=== PATIENT | male | born 1970 | race Caucasian/White ===

== ENCOUNTER 2024-08-15 08:34 | Outpatient (AMB) | payer BC, SELFPAY ==
--- NOTE | 2024-08-15 08:42 | MHC.OFFVIS ---
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 The patient states that he may have dislocated his right shoulder in 1996 while rock climbing. Over the last year his pain and stiffness have gotten worse. He continues to be as active as possible. He reports difficulty with lifting his right hand above shoulder height. He has had cortisone injections in the past which gave him temporary relief. 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 Physical Exam Vital Signs: BMI result Body Mass Index 24.4 Const Other: Well-nourished well-developed very friendly male awake alert and oriented x3 in no acute distress Extrem Other: Bilateral upper extremity examination shows good capillary refill, no skin lesions noted, normal sensation light touch Right shoulder examination shows decreased active and passive range of motion when compared to his left shoulder, 4+ out of 5 strength with supraspinatus testing, positive impingement signs, no instability Results Reviewed Results Reviewed: X-rays of the patient's right shoulder show moderate glenohumeral joint degenerative changes, a type 2 acromion, severe acromioclavicular joint narrowing MRI of the patient's right shoulder shows moderate glenohumeral joint degenerative changes, a type 2 acromion, signal change within the supraspinatus tendon most likely due to adhesive capsulitis Assessment & Plan Assessment & Plan (1) Impingement of right shoulder: Code(s): M25.811 - Other specified joint disorders, right shoulder Category: Medical Plan Mr. Nava presents with right shoulder pain and stiffness due to impingement syndrome, acromioclavicular joint arthritis, adhesive capsulitis and glenohumeral joint arthritis. I had a lengthy discussion with the patient regarding the treatment options. At this point the patient has failed continued non operative treatments. The risks and benefits of right shoulder arthroscopic surgery were discussed at length with the patient. The patient wishes to proceed with surgery. Surgery will most likely involve right shoulder diagnostic arthroscopy with distal clavicle excision, acromioplasty, capsular release and manipulation under anesthesia. The patient does understand that he may not get 100% relief of his symptoms depending on the severity of his glenohumeral joint degenerative changes. He wishes to hold off on total shoulder replacement surgery for as long as possible. I agree with this plan. Feel free to call me at any time should questions regarding his orthopedic management arise. I spent 20 minutes in reviewing the patient's records and imaging studies, seeing the patient and documenting in the medical record. Orders: Orders XR shoulder RT min 2V Today M25.511 - Pain in right shoulder Coding Level of Care Code New Pt Level 3 (64720) Complex EM visit Add On G2211 Diagnoses Impingement of right shoulder M25.811
[2024-08-15 08:44] VITALS: BMI 24.4
--- OUTSIDE RECORDS SUMMARY | 2024-08-15 09:11 | XMS_ITS | Clinical Summary ---
Author Organization [facility] Address [address] [place] [address] Care Team Providers Care Dental Service Chief Name Role Phone Elvia Billings PA-C Primary Care Provider [phone] Medications Medication Sig Dispensed Refills Start Date End Date Status terbinafine (LamiSIL) 250 MG tablet Take 250 mg by mouth. 0 04/25/2019 Active terbinafine (LamiSIL) 250 MG tablet TK 1 T PO D 0 04/25/2019 Active Social History Tobacco Use Types Packs/Day Years Used Date Smoking Tobacco: Never Smokeless Tobacco: Never Alcohol Use Standard Drinks/Week Comments No 0 (1 standard drink = 0.6 oz pur e alcohol) Sex and Gender Information Value Date Recorded Sex Assigned at Not on file Gender Identity Not on file Sexual Orientation Not on file Job Start Date Occupation Industry Not on file Not on file Not on file Last Filed Vital Signs Vital Sign Reading Time Taken Comments Blood Pressure - - Pulse - - Temperature - - Respiratory Rate - - Oxygen Saturation - - Inhaled Oxygen Concentration - - Weight 78.5 kg (173 lb) 06/24/2019 9:43 AM EST Height 180.3 cm (5' 11 ) 06/24/2019 9:43 AM EST Body Mass Index 24.13 06/24/2019 9:43 AM EST Plan of Treatment Health Maintenance Due Date Last Done Comments Hepatitis B Vaccines (1 of 3 - 3-dose series) 1969 Hepatitis C Screening 1969 Depression Screening 1981 Preventative Health Evaluation 11/21/1987 Colon Cancer Screening (Colonoscopy) 2014 COVID-19 Vaccine (3 - 2023-2 5 season) 2024 10/11/2020, 09/20/2020 Influenza Vaccine (#1) 2024 Shingrix-Zoster Vaccine (2 o f 2) 04/19/2024 02/23/2024 DTap / Tdap / Td (3 - Td or Tdap) 03/01/2034 03/01/2024, 09/03/2013 Pneumococcal Vaccine Aged Out No long er eligible based on patient's age to complete this topic RSV Ped < 20 months Aged Out No longe r eligible based on patient's age to complete this topic Care Teams Dental Service Chief Relationship Specialty Start Date End Date Elvia Billings PA-C [address] [place] [phone] PCP - General Physician Adolescent Specialist 06/10/19
--- OUTSIDE RECORDS SUMMARY | 2024-08-15 09:11 | XMS_ITS | Encounter Summary ---
Author Organization [facility] Address [address] [place] [address] Care Team Providers Care Sql Report Analyst Name Role Phone Elvia Billings Primary Care Provider [phone] Encounter Details Date Type Department Care Team [...] Care Team (Late st Contact Info) Description 03/07/2025 11:30 AM EDT Office Visit [facility] [address] [place] [phone] Ethan Vides MD [address] [place] [address] documented as of this encounter Procedures Procedure [...] chronic pain, chronic increasing right shoulder pain. ??History of biceps rupture and dislocation TECHNIQUE: Multiplanar sequences were acquired through the joint following the arthrographic infusion of contrast diluted in normal saline. CONTRAST: 0.1 mL of Clariscan intra-articular, diluted in normal saline. COMPARISON: Same day arthrogram image. FINDINGS: Articular cartilage and bone marrow signal: Severe loss of articular cartilage lining the glenohumeral joint space. ??There is a large ossified loose body in the subcoracoid recess measuring 2.8 x 1.7 cm. ??There may also be a 2nd small loose body in the biceps tendon sheath. ??Marginal osteophytes arise from the inferior margin of the glenohumeral joint. ??The bone marrow signal is within normal limits. Labrum: Posterior extension of the superior sublabral recess, concerning for a SLAP tear. ??There is a well-defined tear through the posterior labrum with contrast extending through this defect and coalescing into a small cyst. Capsule and glenohumeral ligaments: Anterior capacious capsule. ??The glenohumeral ligaments are intact. Rotator cuff: Degeneration of the supraspinatus tendon insertion. ??There is imbibed contrast material insinuated within its articular fibers, consistent with numerous small partial thickness rotator cuff tears. Insertional infraspinatus tendinopathy without tear. ??The subscapularis and teres minor are preserved. Biceps tendon: The biceps tendon is not ruptured or dislocated. AC joint: Mild arthritis. Acromial morphology: Type II morphology without impingement. Bursal spaces: No bursitis. ??There is contrast extravasation in the anterior deltoid related to the arthrographic approach. Miscellaneous: None. CONCLUSION: 1. ??Severe glenohumeral joint space osteoarthritis. ??Loose bodies. 2. ??Tears of the posterior and superior aspects of the glenoid labrum. 3. ??Severe insertional supraspinatus tendinosis with numerous small articular surface partial tears. 4. ??Mild AC joint space arthrosis. Report reviewed and [...] pain documented in this encounter Care Teams Sql Report Analyst Relationship Specialty Start Date End Date Elvia Billings PA [address] [place] [address] PCP - General 03/19/24 07/04/24 documented as of this encounter
--- OUTSIDE RECORDS SUMMARY | 2024-08-15 09:11 | XMS_ITS | Encounter Summary ---
Author Organization [facility] Address [address] [place] [address] Care Team Providers Care Military Police Officer Name Role Phone Elvia Billings Primary Care Provider [phone] Encounter Details Date Type Department Care Team (Latest Contact Info) Description 03/26/2024 8:31 AM EDT Hospital Encounter TH HISTORIC ENCOUNTERS [...] Office Visit Internal Medicine - [facility] [address] [place] [address] Ethan Vides MD [address] [place] [address] documented as of this encounter Procedures Procedure Name Priority Date/Time Associated Diagnosis Comments FL ARTHROGRAM SHOULDER - RIGHT Routine 03/26/2024 9:12 AM EDT Pain in right shoulder Other chronic pain documented in this encounter Results * FL ARTHROGRAM SHOULDER - RIGHT (03/26/2024 9:12 AM EDT) Anatomical Region Laterality Modality Radio Fluoroscop y 02/27/2024 12:4 2 PM EDT Narrative 03/26/2024 12:56 PM EDT Indication: Joint pain with concern for labral injury. Interventionalists: Stephon Kirk MD Laterality: Right Procedure: The patient was given an opportunity to ask any all questions that they had regarding the procedure. These questions were answered. Informed consent was provided by the patient after usual and customary explanation of the procedure and expected and possible side effects/complications. ??A timeout was performed as per [facility] policy. The patient was placed in a supine position with their shoulder externally rotated and adducted. This joint was identified via fluoroscopy. The overlying skin was prepped and draped in the usual sterile fashion. Approximately 3 ml of 1% lidocaine was instilled into subcutaneous and deeper soft tissues. Subsequently, a 22- gauge spinal needle was placed under fluoroscopic guidance into the joint capsule. Confirmation of intra-articular placement of the needle was determined via administration of 2 mL Isovue-300. A dilute mixture of gadolinium based contrast was administered. 0.6 mL in 20 mL of 0.9% sterile saline was provided. ?? The patient tolerated the procedure well. No bleeding or hematoma developed. The patient remained neurovascularly intact. A Band-Aid was placed. The patient was assisted off the table and was able to ambulate stably. Fluoroscopic Time: 0.1 minutes. Impression: Arthrogram in anticipation of MRI. Report reviewed and signed by : Dr. Stephon Kirk MD on 03/26/2024 12:56 PM. Workstation Name - [id number] Procedure Note Stephon Kirk MD - 04/01/2024 Indication: Joint pain with concern for labral injury. Interventionalists: Stephon Kirk MD Laterality: Right Procedure: The patient was given an opportunity to ask any all questionsthat they had regarding the procedure. These questions were answered.Informed consent was provided by the patient after usual and customaryexplanation of the procedure and expected and possible sideeffects/complications. A timeout was performed as per [facility]. The patient was placed in a supine position with their shoulder externallyrotated and adducted. This joint was identified via fluoroscopy. Theoverlying skin was prepped and draped in the usual sterile fashion.Approximately 3 ml of 1% lidocaine was instilled into subcutaneous anddeeper soft tissues. Subsequently, a 22-gauge spinal needle was placedunder fluoroscopic guidance into the joint capsule. Confirmation ofintra-articular placement of the needle was determined via administrationof 2 mL Isovue-300. A dilute mixture of gadolinium based contrast wasadministered. 0.6 mL in 20 mL of 0.9% sterile saline was provided. The patient tolerated the procedure well. No bleeding or hematomadeveloped. The patient remained neurovascularly intact. A Band-Aid wasplaced. The patient was assisted off the table and was able to ambulatestably. Fluoroscopic Time: 0.1 minutes. Impression: Arthrogram in anticipation of MRI. Report reviewed and signed by : Dr. Stephon Kirk MD on 03/26/2024 12:56 PM.Workstation Name - [id number] 0.1 Jeremy Hyde MD IMG FLUOROSCOPY PROCEDURES Fi nal Result documented in this encounter Visit Diagnoses Diagnosis Pain in right shoulder Other chronic pain documented in this encounter Care Teams Military Police Officer Relationship Specialty Start Date End Date Elvia Billings PA [address] [place] [address] PCP - General 03/19/24 07/04/24 documented as of this encounter
--- OUTSIDE RECORDS SUMMARY | 2024-08-15 09:11 | XMS_ITS | Clinical Summary ---
Author Organization [facility] Address [address] [place] [address] Care Team Providers Care Neuropsychology Division Chief Name Role Phone Pcp, No Primary Care Provider Unavailabl e Allergies No known active allergies Medications No known medications Active Problems No known active problems Social History Tobacco Use Types Packs/Day Years Used Date Smoking Tobacco: Never Smokeless Tobacco: Never Alcohol Use Standard Drinks/Week Comments Not Currently 0 (1 standard drink = 0.6 oz pur e alcohol) Sex and Gender Information Value Date Recorded Sex Assigned at Not on file Gender Identity Not on file Sexual Orientation Not on file Last Filed Vital Signs Vital Sign Reading Time Taken Comments Blood Pressure 145/90 08/08/2023 8:46 AM EST Pulse 60 08/08/2023 8:46 AM EST Temperature 36.8 ??C (98.3 ??F) 08/08/2023 8:46 AM ES T Respiratory Rate 16 08/08/2023 8:46 AM EST Oxygen Saturation 97% 08/08/2023 8:46 AM EST Inhaled Oxygen Concentration - - Weight 79.8 kg (176 lb) 08/08/2023 8:46 AM EST Height 180.3 cm (5' 11 ) 08/08/2023 8:46 AM EST Body Mass Index 24.55 08/08/2023 8:46 AM EST Plan of Treatment Health Maintenance Due Date Last Done Comments Hepatitis C Virus Screening 1969 HIV Screening 1982 DTaP/Tdap/Td Vaccines (1 - Tdap) 1988 Hepatitis B Vaccines (1 of 3 - 19+ 3-dose series) 1988 Colonoscopy 2014 Pneumococcal Vaccines 50+ (1 of 1 - PCV) 11/21/2019 Zoster (Shingles) Vaccine (1 of 2) 11/21/2019 Influenza Vaccine 01/04/2024 COVID-19 Vaccine ( - 2023-2 5 season) 2024 Pneumococcal Vaccine: Pediat juancho (0-5 Years) and At-Risk Patients (6 to 49 Years) Aged Out No longer eligible b ased on patient's age to complete this topic Care Teams Neuropsychology Division Chief Relationship Specialty Start Date End Date Pcp, No PCP - General General Medicine 08/08/23
--- OUTSIDE RECORDS SUMMARY | 2024-08-15 09:11 | XMS_ITS | Clinical Summary ---
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 Name Role Phone Ethan Vides MD Primary Care Provider [phone] Surgical History Surgery Date Site/Laterality Comments OTHER SURGICAL HISTORY december 2014 PROCEDURE: DRAIN RETROPERITONEAL ABSCESS,PERCUT Medical History Medical History Date Comments Ischemic colitis (CMS/HCC) DX:Is chemic colitis (HCC) PAC (premature atrial contraction) 07/17/2015 DX:PAC (premature atrial contraction) Family History Medical History Relation Name Comments Hypertension Father alive Other: hyperlipidemia Father Throat cancer Father polyps in thro at Colon cancer Neg Hx Prostate cancer Neg Hx Relation Name Status Comments Father Mother Alive Social History Tobacco Use Types Packs/Day Years Used Date Smoking Tobacco: Never Smokeless Tobacco: Never Alcohol Use Standard Drinks/Week Comments Not Currently 0 (1 standard drink = 0.6 oz pur e alcohol) Sex and Gender Information Value Date Recorded Sex Assigned at Not on file Legal Sex Male 10:41 PM EST Gender Identity Not on file Sexual Orientation Not on file Obstetrics History Last Filed Vital Signs Vital Sign Reading Time Taken Comments Blood Pressure 124/88 03/01/2024 3:31 PM EDT Pulse 58 03/01/2024 3:31 PM EDT Temperature - - Respiratory Rate - - Oxygen Saturation - - Inhaled Oxygen Concentration - - Weight 82.9 kg (182 lb 12.8 oz) 03/01/2024 3:31 PM EDT Height 180.3 cm (5' 11 ) 03/01/2024 3:31 PM EDT Body Mass Index 25.5 03/01/2024 3:31 PM EDT Plan of Treatment Upcoming Encounters Date Type Department Care Team (Late st Contact Info) Description 03/07/2025 11:30 AM EDT Office Visit Internal Medicine - [facility] [address] [place] [phone] Ethan Vides MD [address] [place] [address] Health Maintenance Due Date Last Done Comments Hepatitis B Vaccines (1 of 3 - 19+ 3-dose series) 1988 Pneumococcal Vaccine: 50+ Years (1 of 1 - PCV) 11/21/2019 Colorectal Cancer Screening: Colonoscopy 05/12/2022 Depression Screening 05/12/2022 HIV Screening 05/12/2022 Hepatitis C Screening 05/12/2022 Social Influencers of Health Screening 05/12/2022 COVID-19 Vaccine (3 - 2023-2 5 season) 2024 10/11/2020, 09/20/2020 Influenza Vaccine (#1) 2024 Zoster Vaccines (2 of 2) 04/19/2024 02/23/2024 Cholesterol Screening (Lipid Panel) 03/01/2029 03/01/2024 DTaP,Tdap,and Td Vaccines (3 - Td or Tdap) 03/01/2034 03/01/2024, 09/03/2013 HIB Vaccines Aged Out No longer eligi ble based on patient's age to complete this topic HPV Vaccines Aged Out No longer eligi ble based on patient's age to complete this topic Hepatitis A Vaccines Aged Out No long er eligible based on patient's age to complete this topic IPV Vaccines Aged Out No longer eligi ble based on patient's age to complete this topic MMR Vaccines Aged Out No longer eligi ble based on patient's age to complete this topic Meningococcal ACWY Vaccine Aged Out N o longer eligible based on patient's age to complete this topic Meningococcal B Vacine Aged Out No lo nger eligible based on patient's age to complete this topic Pneumococcal Vaccine: Pediatrics (0 to 5 Years) and At-Risk Patients (6 to 64 Years) Aged Out No longer eligible b ased on patient's age to complete this topic RSV Immunization Patients Under 20 months Aged Out No longer eligible b ased on patient's age to complete this topic Varicella Vaccines Aged Out No longer eligible based on patient's age to complete this topic Insurance [facility]) Care Teams Dry Kiln Feeder Relationship Specialty Start Date End Date Ethan Vides MD [address] [place] [id number] PCP - General Internal Medicine 07/05/24
--- OUTSIDE RECORDS SUMMARY | 2024-08-15 09:11 | XMS_ITS ---
Author Name [facility] Organization Unknown History of Medication Use Medication Directions Dispensed Refills Start Date End Date Stat Supartz FX 10 mg/mL intra-articular syringe Inject 2 mL by intra-articular route for 35 days. 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 2022-12-27 ProblemAct [facility] Rupture of tendon of biceps active 2022-12-27 ProblemAct [facility] Osteoarthritis of joint of right shoulder region active 2024-02-26 ProblemAct [facility] Chronic pain of right upper limb active 2024-02-26 ProblemAct [facility] Periorbital cellulitis of right eye active [facility] Encounters Encounter Type Encounter Reason Primary Diagnosis Location Date Ambulatory [facility] 06/25/2024 Ambulatory [facility] 06/20/2024 Ambulatory [facility] 05/16/2024 Ambulatory [facility] 04/29/2024 Ambulatory [facility] 04/29/2024 Ambulatory [facility] 04/02/2024 Ambulatory [facility] 04/01/2024 Ambulatory [facility] 03/11/2024 Ambulatory [facility] 02/28/2024 Ambulatory [facility] 02/26/2024 Ambulatory [facility] 02/26/2024 Ambulatory [facility] 02/22/2024 Ambulatory [facility] 02/22/2024 Ambulatory [facility] 02/21/2024 Ambulatory [facility] 02/21/2024 Ambulatory [facility] 08/18/2023 Ambulatory Periorbital cellulitis [facility]ul[facility] 08[facility]23 Ambulatory [facility] 04/13/2023 Ambulatory [facility] 04/13/2023 Ambulatory [facility] 12/22/2022 Ambulatory [facility] 12/22/2022 Ambulatory [facility] 12/22/2022 Ambulatory [facility] 12/22/2022 Care Team Organization Name Specialty Phone Email Start Date End [facility] [facility] 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
--- OUTSIDE RECORDS SUMMARY | 2024-08-15 09:11 | XMS_ITS | Data Portability ---
Author Organization [place] [facility] [place] Address [address] [place] [address] Care Team Providers Care Web Marketing Manager Name Role Phone ROMANA SENA Referring Provider ROMANA SENA Primary Care Provider Assessment Encounter Date Assessment Date Assessment LastModified by Organization Details LastModified Time 12/27/2022 12/27/2022 I have reviewed his history and physical exam and x-rays it is my impression that he has underlying right shoulder arthritis which is chronic and more recently acutely has suffered a proximal biceps rupture. He is feeling better which is often the case after these injuries of course his motion is still limited because of his arthritis he is in therapy and will continue with this we went over the nature of the problem and he seems comfortable with progressing to a rehab program of course if his symptoms do not improve he will return for further evaluation and treatment Not available 12/27/2022 10:33:29 04/13/2023 04/13/2023 Rainer is doing well. We talked about further imaging such as an MRI but at this point since he is doing so well we will get a hold off on that and he is getting continue with his exercise program but if he is not able to return to doing what he wants to do that I do think an MRI scan would be indicated. We do know he has arthritis. We do know he has proximal biceps rupture but if he does not improve I would be interested in seeing the status of his rotator cuff So for now we will see him back on an as-needed basis however if he does not improve I would have a very low threshold for obtaining an MRI [email or web address] Not available 04/13/2023 09:24:36 02/26/2024 02/26/2024 Chronic right sh oulder symptoms, generally increasing. He has some glenohumeral crepitation and stiffness. He has pain and mechanical symptoms. X-rays demonstrate moderate degenerative changes, history of a remote dislocation back in 1996. He does have a long head biceps tendon rupture more recently, I wonder if he might have a residual stump of tendon inside the joint causing some ongoing mechanical irritation as well. We talked about treatment options. We decided on an MRI arthrogram, I will see him back to go over the results. We did have a brief discussion about injections, he is not interested in cortisone but has done some research about PRP. We talked about that process if he was interested in pursuing it. Questions invited and answered at length. Greater than 30 minutes was spent with the encounter today, including face to face time with the patient, documentation, review of records/imaging if applicable, and coordination of care. PRIOR JK 04/13/23: Rainer is doing well. We talked about further imaging such as an MRI but at this point since he is doing so well we will get a hold off on that and he is getting continue with his exercise program but if he is not able to return to doing what he wants to do that I do think an MRI scan would be indicated. We do know he has arthritis. We do know he has proximal biceps rupture but if he does not improve I would be interested in seeing the status of his rotator cuff So for now we will see him back on an as-needed basis however if he does not improve I would have a very low threshold for obtaining an MRI Not available 02/26/2024 08:49:29 04/01/2024 04/01/2024 I went over the MRI with him. We looked at the images together. This does confirm fairly advanced glenohumeral degenerative changes, he has a fairly large anterior loose body. Long head of the biceps is at least partially intact. No obvious full-thickness rotator cuff tear. We had a lengthy discussion again regarding the natural history of shoulder osteoarthritis and strategies for symptomatic management. Surgical options really would be a shoulder replacement versus consideration of an arthroscopy for debridement, biceps tenotomy, and loose body removal. It is unclear if that type of intervention would prove meaningful in terms of symptom improvement. It is his desire to continue with nonoperative management. We talked at length about injections. He is adamantly against a cortisone. We talked about viscosupplementation and PRP. He understands that both of these would be off label use and not covered by insurance. He is interested in pursuing the viscosupplementation as it would be a cheaper option as compared to PRP. He understands there are no guarantees of success. He is going to continue home exercises in the meantime. Greater than 30 minutes was spent with the encounter today, including face to face time with the patient, documentation, review of records/imaging if applicable, and coordination of care. PRIOR: Chronic right shoulder symptoms, generally increasing. He has some glenohumeral crepitation and stiffness. He has pain and mechanical symptoms. X-rays demonstrate moderate degenerative changes, history of a remote dislocation back in 1996. He does have a long head biceps tendon rupture more recently, I wonder if he might have a residual stump of tendon inside the joint causing some ongoing mechanical irritation as well. We talked about treatment options. We decided on an MRI arthrogram, I will see him back to go over the results. We did have a brief discussion about injections, he is not interested in cortisone but has done some research about PRP. We talked about that process if he was interested in pursuing it. PRIOR JK 04/13/23: Rainer is doing well. We talked about further imaging such as an MRI but at this point since he is doing so well we will get a hold off on that and he is getting continue with his exercise program but if he is not able to return to doing what he wants to do that I do think an MRI scan would be indicated. We do know he has arthritis. We do know he has proximal biceps rupture but if he does not improve I would be interested in seeing the status of his rotator cuff So for now we will see him back on an as-needed basis however if he does not improve I would have a very low threshold for obtaining an MRI Not available 04/01/2024 12:10:05 04/29/2024 04/29/2024 He asked that we proceed with the Supartz injection today. He tolerated this well into the right shoulder. Postinjection instructions reviewed. He understands it may take up to a month to see full results. He will plan on giving us a call in 3 to 4 weeks to report his progress. He understands that we could piggyback another injection if he feels it is partially helpful. He will continue a home exercise program. Questions invited and answered. PRIOR: I went over the MRI with him. We looked at the images together. This does confirm fairly advanced glenohumeral degenerative changes, he has a fairly large anterior loose body. Long head of the biceps is at least partially intact. No obvious full-thickness rotator cuff tear. We had a lengthy discussion again regarding the natural history of shoulder osteoarthritis and strategies for symptomatic management. Surgical options really would be a shoulder replacement versus consideration of an arthroscopy for debridement, biceps tenotomy, and loose body removal. It is unclear if that type of intervention would prove meaningful in terms of symptom improvement. It is his desire to continue with nonoperative management. We talked at length about injections. He is adamantly against a cortisone. We talked about viscosupplementation and PRP. He understands that both of these would be off label use and not covered by insurance. He is interested in pursuing the viscosupplementation as it would be a cheaper option as compared to PRP. He understands there are no guarantees of success. He is going to continue home exercises in the meantime. PRIOR: Chronic right shoulder symptoms, generally increasing. He has some glenohumeral crepitation and stiffness. He has pain and mechanical symptoms. X-rays demonstrate moderate degenerative changes, history of a remote dislocation back in 1996. He does have a long head biceps tendon rupture more recently, I wonder if he might have a residual stump of tendon inside the joint causing some ongoing mechanical irritation as well. We talked about treatment options. We decided on an MRI arthrogram, I will see him back to go over the results. We did have a brief discussion about injections, he is not interested in cortisone but has done some research about PRP. We talked about that process if he was interested in pursuing it. PRIOR TWIN 04/13/23: Rainer is doing well. We talked about further imaging such as an MRI but at this point since he is doing so well we will get a hold off on that and he is getting continue with his exercise program but if he is not able to return to doing what he wants to do that I do think an MRI scan would be indicated. We do know he has arthritis. We do know he has proximal biceps rupture but if he does not improve I would be interested in seeing the status of his rotator cuff So for now we will see him back on an as-needed basis however if he does not improve I would have a very low threshold for obtaining an MRI [email or web address] Not available 04/29/2024 09:12:50 Plan of Treatment Reminders Order Date Submit Date Provider Last Modified By Organization Details Last Modified Time Details Appointments None recorded. Lab None recorded. Referral None recorded. Procedures None recorded. Surgeries None recorded. Imaging MR, arthrogram , shoulder 2023 024 [email or web address] Not available 13:04:34 XR, shoulder, 2 or more view 2023 024 [email or web address] [facility], [address], [place], [address], 4 08:50:33 XR, shoulder, 2 or more view 2022 023 [email or web address] [facility], [address], [place], [address], 3 11:01:05 Medication Orders Supartz FX 10 mg/mL intra-roxana cular syringe 2023 024 [email or web address] [id number], [address], [place], [address], 4 11:52:07 lidocaine (PF) 100 mg/5 mL (2 %) injection syringe 2023 024 [email or web address] [id number], [address], [place], [address], 4 11:52:07 Patient TargetsNo targets recorded. Patient Instructions Encounter Date Encounter Id Patient Instructions Last Modified By Organization Details Last Modified Time 12/27/2022 Complete, two or more views of the true AP of the {{left right* bilateral }} glenohumeral joint were performed and supraspinatus outlet view were performed and reviewed. Findings: {{ osteoarthritis#}} Not available 12/27/2022 10:32:08 02/26/2024 [id number] 3 views of the r ight shoulder were obtained on 02/26/2024 in the [place] office. There are moderate glenohumeral degenerative changes with narrowing of the glenohumeral joint space. No significant posterior subluxation. Small inferior humeral osteophyte. Acromiohumeral interval appears intact. No acute fracture appreciated. Findings: Moderate right shoulder glenohumeral degenerative changes as described. Interpreted by: Jeremy Hyde MD Not available 02/26/2024 08:41:16 04/01/2024 [id number] 3 views of the r ight shoulder were obtained on 02/26/2024 in the [place] office. There are moderate glenohumeral degenerative changes with narrowing of the glenohumeral joint space. No significant posterior subluxation. Small inferior humeral osteophyte. Acromiohumeral interval appears intact. No acute fracture appreciated. Findings: Moderate right shoulder glenohumeral degenerative changes as described. Interpreted by: Jeremy Hyde MD Not available 04/01/2024 08:18:42 04/29/2024 [id number] Patient Instruct ions Following Viscosupplementation Injections Dr. Hyde has recommended an injection for you in the office today. He has injected the area in order to reduce the pain that you are experiencing from your arthritis. Please note that not everyone will have a lasting response following the injection. Here is some information that he would like for you to have: Content of the Injection: The injection consists of a lubricating injection called hyaluronic acid. You may experience a small increase in pain following the injection. Dr. Hyde recommends icing the affected area for 20 minutes 3-4 times per day. Post-injection Instructions: It is recommended that you refrain from any high level activities using the joint or limb that was injected for approximately 24-48 hours. Normal day to day activities are generally not a problem. Possible Side Effects Skin discoloration: Individuals with dark complexions may experience some skin discoloration locally at the site of the injection. Flare-Up: There is the possibility of an increase in discomfort within 48 hours following the injection. This is called a ? flare? . To help minimize the chances of this, please see the post-injection instructions above. Infection: There is a less than 1% chance of an infection. If you notice any signs of infection (redness, warmth, drainage, fever greater than 100 degrees) you should call Dr. Hyde? s office immediately at [phone]. [email or web address] Not available 04/29/2024 09:11:58 3 views of the r ight shoulder were obtained on 02/26/2024 in the [place] office. There are moderate glenohumeral degenerative changes with narrowing of the glenohumeral joint space. No significant posterior subluxation. Small inferior humeral osteophyte. Acromiohumeral interval appears intact. No acute fracture appreciated. Findings: Moderate right shoulder glenohumeral degenerative changes as described. Interpreted by: MD flori Kirk Not available 04/29/2024 09:11:59 Reason for Referral None Reported. Results Created Date Observation Date Name Description Value Unit Range Abnormal Flag Note LastModifiedBy Organization Detail LastModifiedTime 03/26/20 24 03/26/2024 MR, arthelliot diallo , godfrey vianney No observ ation record ed. [email or web address] [facility] [address] [address], [place], [address], 03/27/2024 11:35:34 03/26/20 24 03/26/2024 , arthelliot diallo , godfrey vianney No observ ation record ed. [email or web address] [address] [facility], [place], [address], 03/27/2024 11:35:26 Result Notes None recorded. Problems Name Problem SNOMED Code Status Onset Date Resolution Date Notes Provider Name and Address Organization Details Recorded Time Degenerativ e joint disease of shoulder region 16639621 Active 2022 Marck Collins MD [address], [place], [address], [place] [facility] 3 10:32:16 Rupture of tendon of biceps 735317654 Active 2022 Marck Collins MD [address], [place], [address], [place] [facility], [facility] 3 10:32:33 Chronic pain of right upper limb 8361355649053 9108 Active 2023 Jeremy Hyde MD [address], [place], [address], [place] [facility], [facility] 4 08:36:33 Osteoarthri tis of joint of right shoulder region 4535702651084 00 Active 2023 Jeremy Hyde MD [address], [place], [address], [place] [facility], [facility] 4 08:41:25 Problem Notes None recorded. Procedures Surgical History Date Name Laterality Status Provider Name and Address Organization Details Recorded Time 4 SAB Shoulder GH Inj w/US completed Jeremy Hyde MD [address], [place], [address], [place] [facility] 04/29/2024 09:11:50 Imaging Results Imaging Date Name Status LastModified by Organiz ation Details LastModified Time 03/26/2024 MR, arthrogram, shoulder completed [email or web address] [facility] [address], [address], 03/27/2024 11:35:34 03/26/2024 MR, arthrogram, shoulder completed [email or web address] [facility] [address] [place] [address], [place], [address], 03/27/2024 11:35:26 Procedure Notes None recorded. Medical Equipment None Reported. Allergies No known drug allergies Medications Name Sig Start Date Stop Date Status Note LastModified by Organization Details LastModified Time amoxicillin 500 mg tablet 02/25 completed Not Available Not Available Not Available lidocaine (PF) 100 mg/5 mL (2 %) injection syringe Take 5 mL by injection route. 2023 active Not Available Not Available Not Darrion evangelista Supartz FX 10 mg/mL intra-artic ular syringe Inject 2 mL by intra-art icular route for 35 days. 2023 active Not Available Not Available Not Darrion evangelista Vitals Date Recorded Body height Body mass index (BMI) Body weight Provider Name and Address Organization Details Last Updated DateTime 02/26/2024 180.34 cm 24.4 kg/m2 [address] [place] [facility] 02/26/2024 08:27:14 Date Recorded Body height Body mass index (BMI) Body weight Provider Name and Address Organization Details Last Updated DateTime 04/01/2024 180.34 cm 24.5 kg/m2 42073.26 g Crystal Tenorio [facility] 04/01/2024 09:56:23 Date Recorded Body height Body mass index (BMI) Body weight Provider Name and Address Organization Details Last Updated DateTime 04/29/2024 180.34 cm 24.7 kg/m2 33974.85 g Crystal Tenorio [facility] 04/29/2024 08:48:28 Date Recorded Body height Body mass index (BMI) Body weight Provider Name and Address Organization Details Last Updated DateTime 12/27/2022 210.82 cm 17.3 kg/m2 06410.7 g Hannah Mullins [facility] 12/27/2022 10:09:48 Social History Question Answer Notes LastModified by Organizat ion Details LastModified Time Tobacco Smoking Status Never Smoker Hannah Mullins null, [place] [facility] 12/27/2022 10:09:55 What Is Your Level Of Alcohol Consumption? None [email or web address] Information not available 12/27/2022 Are You Currently Employed? 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 No Information not available 12/27/2022 Do You Or Have You Ever Used Any Other Forms Of Tobacco Or Nicotine? No [email or web address] Information not available 12/27/2022 Sex: Unknown Functional Status None recorded. Mental Status None recorded. Family History Relationship Description Onset Age of this Age Resolved Age Notes LastModified by Organization Details LastModified Time Mother History of cancer of unknown primary site [email or web address] Not available 08:27:49 Medical History Condition Response Asthma Y Past Encounters Encounter ID Performer Location Encounter Start Date Encounter Closed Date Diagnosis/Indication Diagnosis SNOMED-CT Code Diagnosis ICD10 Code Diagnosis Note [id number] MD LINH [address] [address] 12/27/2022 09:52:39 12/27/2022 10:33:12 Pain of right shoulder joint 6036443996 1077901 M25.511 Degenerati ve joint disease of shoulder region 97536057 M19.019 Rupture of tendon of biceps 648325952 M66.829 [id number] MD DONY Smith [address] [address] 04/13/2023 08:47:15 04/13/2023 09:30:29 Rupture of tendon of biceps 608507504 M66.829 [id number] MD DONY Kirk [address] [address] 02/26/2024 08:02:06 02/26/2024 08:50:32 Rupture of tendon of biceps 207979822 M66.829 Chronic pa in of right upper limb 3397779159 4061710 M25.511 G89.29 Osteoarthr itis of joint of right shoulder region 3422441661 22551 M19.211 [id number] MD DONY Kirk [address] [address] 04/01/2024 09:46:44 04/01/2024 10:30:32 Osteoarthritis of joint of right shoulder region 4172603552 55375 M19.211 Rupture of tendon of biceps 249252563 M66.829 Chronic pa in of right upper limb 7070655788 7079944 M25.511 G89.29 [id number] MD LINH Krik[address] [address] 04/29/2024 08:44:28 04/29/2024 09:11:35 Osteoarthritis of joint of right shoulder region 6235057990 84623 M19.211 Rupture of tendon of biceps 336889105 M66.829 Chronic pa in of right upper limb 8020633641 0431923 M25.511 G89.29 Health Concerns Section Related Observation LastModified by Organization Detai ls LastModified Time None Recorded Concern Status LastModified by Organization Details LastModified Time None Recorded Advance Directives Directive None Recorded Payers Encounter Date Sequence Insurance Name Policy Number Policy Castano Covered Member ID Castano Member ID Guarantor Name 12/27/2022 1 [facility] [place] [facility] [place] [id number] Rainer Nava [id number] Rainer Nava 04/13/2023 1 [facility] [place] [id number] Rainer Nava [id number] Rainer Nava 02/26/2024 1 [place] [id number] Rainer Nava [id number] Rainer Nava 04/01/2024 1 [place] [id number] Rainer Nava [id number] Rainer Nava Notes Date Note Type Note Provider Name and Address Organization Details Recorded Time 12/27/2022 text/html Gagandeep is a very pleasant 52-year-old male who has a known history of right shoulder arthritis who is sore for years ago recently about 3 weeks ago he noticed that his arm looked a little funny he had some discomfort but it was not as sharp pain he was doing some biceps exercises as well as moving some boxes. He now presents with anterior shoulder pain and a Luis Eduardo deformity Marck Collins MD [address], [place], [address], [place] [facility] 12/27/2022 10:33:42 04/13/2023 text/html Rainer returns for follow-up of his right shoulder. He is about 4 months following his proximal biceps rupture. This was superimposed on some pre-existing arthritis and he is definitely feeling better he has better motion of his shoulder less pain although it is still little bit stiff his biceps still feels a little weak and sore Marck Collins MD [address], [place], [address], [place] [facility] 04/13/2023 09:24:48 02/26/2024 text/html Very pleasant 53-year-old male here for an evaluation of steadily increasing chronic right shoulder pain. He is left-hand dominant. Has been previously under the care of Dr. Collins. History of a biceps rupture as noted. He also reports a history of a right shoulder dislocation while rock climbing back in 1996. Recently he has noted increasing symptoms in the shoulder particularly with some tightness as well as clicking and crunching. He denies any recurrent instability. Pain is vaguely around the anterolateral shoulder, he denies radiating pain down the arm. He denies any significant nighttime symptoms. He has been compliant with a home exercise program and physical therapy exercises for the shoulder but they are causing more discomfort. Push-ups are particularly uncomfortable. He notes some crunching with exercises such as flies. Pain can range up to a 6/10. History of asthma. He smokes cigars. 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 PRIOR JK:Rainer returns for follow-up of his right shoulder. He is about 4 months following his proximal biceps rupture. This was superimposed on some pre-existing arthritis and he is definitely feeling better he has better motion of his shoulder less pain although it is still little bit stiff his biceps still feels a little weak and sore Jeremy Hyde MD [address], [place], [address], [place] [facility] 02/27/2024 06:44:30 04/01/2024 text/html Patient returns for reevaluation of his right shoulder. He did have his MRI done. In general his symptoms are about the same. With no activity his symptoms are 2 to a 3 on a 10 point scale. With working out that his symptoms can be a 6/10. PRIOR:Very pleasant 53-year-old male here for an evaluation of steadily increasing chronic right shoulder pain. He is left-hand dominant. Has been previously under the care of Dr. Collins. History of a biceps rupture as noted. He also reports a history of a right shoulder dislocation while rock climbing back in 1996. Recently he has noted increasing symptoms in the shoulder particularly with some tightness as well as clicking and crunching. He denies any recurrent instability. Pain is vaguely around the anterolateral shoulder, he denies radiating pain down the arm. He denies any significant nighttime symptoms. He has been compliant with a home exercise program and physical therapy exercises for the shoulder but they are causing more discomfort. Push-ups are particularly uncomfortable. He notes some crunching with exercises such as flies. Pain can range up to a 6/10. History of asthma. He smokes cigars. 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 PRIOR JK:Rainer returns for follow-up of his right shoulder. He is about 4 months following his proximal biceps rupture. This was superimposed on some pre-existing arthritis and he is definitely feeling better he has better motion of his shoulder less pain although it is still little bit stiff his biceps still feels a little weak and sore Jeremy Hyde MD [address], [place], [address], [place] [facility] 04/01/2024 12:10:13 04/29/2024 text/html He reports that his right shoulder symptoms are about the same. The shoulder still feels a bit stiff particular with overhead activities. He wishes to proceed with the Supartz injection today. PRIOR:Patient returns for reevaluation of his right shoulder. He did have his MRI done. In general his symptoms are about the same. With no activity his symptoms are 2 to a 3 on a 10 point scale. With working out that his symptoms can be a 6/10. PRIOR:Very pleasant 53-year-old male here for an evaluation of steadily increasing chronic right shoulder pain. He is left-hand dominant. Has been previously under the care of Dr. Collins. History of a biceps rupture as noted. He also reports a history of a right shoulder dislocation while rock climbing back in 1996. Recently he has noted increasing symptoms in the shoulder particularly with some tightness as well as clicking and crunching. He denies any recurrent instability. Pain is vaguely around the anterolateral shoulder, he denies radiating pain down the arm. He denies any significant nighttime symptoms. He has been compliant with a home exercise program and physical therapy exercises for the shoulder but they are causing more discomfort. Push-ups are particularly uncomfortable. He notes some crunching with exercises such as flies. Pain can range up to a 6/10. History of asthma. He smokes cigars. 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 PRIOR JK:Rainer returns for follow-up of his right shoulder. He is about 4 months following his proximal biceps rupture. This was superimposed on some pre-existing arthritis and he is definitely feeling better he has better motion of his shoulder less pain although it is still little bit stiff his biceps still feels a little weak and sore Jeremy Hyde MD [address], [place], [address], [place] [facility] 04/29/2024 10:05:19
== END 2024-08-15 09:11 | disposition home or self-care (01) ==
LOC: HO.HOS 08:34
PROVIDERS: Visit Provider Orthopaedic Surgery
DX: M25.811 Other specified joint disorders, right shoulder (principal); M75.41 Impingement syndrome of right shoulder; M19.041 Primary osteoarthritis, right hand
CPT/HCPCS: 99203

== ENCOUNTER → 2024-08-15 08:36 | Outpatient (BNV) | payer BC, SELFPAY | PROVIDERS: Visit Provider Radiology Diagnostic Radiology | DX: M19.011 Primary osteoarthritis, right shoulder (principal) | CPT/HCPCS: 73030 ==

== ENCOUNTER 2024-08-15 09:12 | Outpatient (REF) | payer BC, SELFPAY ==
--- NOTE | ~2024-08-15 | XR_ITS ---
EXAMINATION: XR SHOULDER, RIGHT CLINICAL INFORMATION: M25.511 - Pain in right shoulder COMPARISON: None available. TECHNIQUE: AP external rotation, Grashey, scapular Y, and axillary views of the right shoulder. FINDINGS: Normal bone mineralization. No fracture, dislocation, or suspicious bone lesion. Normal alignment. The glenohumeral joint demonstrates moderate degenerative arthritis with prominent undersurface osteophytes. There is mild remodeling of the glenoid. The AC joint demonstrates mild to moderate superior surface spurring with trace undersurface spurs. There is a type II acromion. No undersurface spurring. The subacromial space is preserved. Remainder of the soft tissue and bony structures appear normal. XR/XR shoulder RT min 2V IMPRESSION: 1. No acute bony abnormalities. 2. Moderate degenerative arthritis glenohumeral joint and AC joint. Electronically signed by: Sergio Reid MD 08/15/2024 09:43 AM EDT
--- OUTSIDE RECORDS SUMMARY | 2024-08-16 09:58 | XMS_ITS | Encounter Summary ---
Author Organization [facility] Address [address] [place] [address] Care Team Providers Care Kier Hand Name Role Phone Elvia Billings Primary Care Provider [phone] Encounter Details Date Type Department Care Team [...] Office Visit Internal Medicine - [facility] [address] [facility] [place] [address] Ethan Vides MD [address] [place] [address] documented as of this encounter Procedures Procedure [...] Report reviewed and signed by : Dr. eRgulo Cedeño MD on 03/26/2024 1:01PM. Workstation Name - [id number] Jeremy Hyde MD IMG MRI PROCEDURES Final Resu lt documented in this encounter Visit Diagnoses Diagnosis Pain in right shoulder Other chronic pain documented in this encounter Care Teams Kier Hand Relationship Specialty Start Date End Date Elvia Billings PA [address] [place] [address] PCP - General 03/19/24 07/04/24 documented as of this encounter
--- OUTSIDE RECORDS SUMMARY | 2024-08-16 09:58 | XMS_ITS | Clinical Summary ---
Author Organization [facility] [place] [address] Phone Care Team Providers Care Hotel Front Desk Clerk Name Role Phone Ethan Vides MD Primary Care Provider [phone] Surgical History Surgery Date Site/Laterality Comments OTHER [...] AM EDT [facility] [address] [facility] [place] [phone] Ethan Vides MD [address] [facility] [place] [address] Health Maintenance Due Date Last Done Comments [...] patient's age to complete this topic Insurance [facility] Care Teams Hotel Front Desk Clerk Relationship Specialty Start Date End Date Ethan Vides MD [address] [place] [address] PCP - General Internal Medicine 07/05/24
--- OUTSIDE RECORDS SUMMARY | 2024-08-16 09:58 | XMS_ITS | Clinical Summary ---
Author Organization [facility] Address [address] [place] [address] Care Team Providers Care Agricultural Loan Officer Name Role Phone Elvia Billings PA-C Primary Care Provider [phone] Medications Medication Sig Dispensed Refills Start Date [...] age to complete this topic Care Teams Agricultural Loan Officer Relationship Specialty Start Date End Date Elvia Billings PA-C [address] [place] [address] PCP - General Physician Database Administration Associate 06/10/19
--- OUTSIDE RECORDS SUMMARY | 2024-08-16 09:58 | XMS_ITS | Data Portability ---
Author Organization [facility] Address [address] [place] [address] Care Team Providers Care Commercial Estimator Name Role Phone ROMANA SENA Referring Provider ROMANA SENA Primary Care Provider [phone] Assessment Encounter Date Assessment Date Assessment LastModified [...] view 2023 024 [email or web address] [facility], [address], [place], [address], 4 08:50:33 XR, shoulder, 2 or more view 2022 023 [email or web address] [facility], [address], [place], [address], 3 11:01:05 Medication Orders Supartz FX 10 mg/mL intra-roxana cular syringe 2023 024 [email or web address] [id number], [address], [place], [address], 4 11:52:07 lidocaine (PF) 100 mg/5 mL (2 %) injection syringe 2023 024 [email or web address] [id number], [address], [place], [address], 4 11:52:07 Patient TargetsNo targets recorded. Patient Instructions Encounter Date Encounter Id Patient Instructions Last Modified By Organization Details Last Modified Time 12/27/2022 Complete, two or more views of the true AP of the {{left right* bilateral }} glenohumeral joint were performed and supraspinatus outlet view were performed and reviewed. Findings: {{ osteoarthritis#}} Not available 12/27/2022 10:32:08 02/26/2024 [id number] views of the r ight shoulder were obtained on 02/26/2024 in the [facility] office. There are moderate glenohumeral degenerative changes with narrowing of the glenohumeral joint space. No significant posterior subluxation. Small inferior humeral osteophyte. Acromiohumeral interval appears intact. No acute fracture appreciated. Findings: Moderate right shoulder glenohumeral degenerative changes as described. Interpreted by: Jeremy Hyde MD Not available 02/26/2024 08:41:16 04/01/2024 [id number] 3 views of the r ight shoulder were obtained on 02/26/2024 in the [facility] office. There are moderate glenohumeral degenerative changes with narrowing of the glenohumeral joint space. No significant posterior subluxation. Small inferior humeral osteophyte. Acromiohumeral interval appears intact. No acute fracture appreciated. Findings: Moderate right shoulder glenohumeral degenerative changes as described. Interpreted by: Jeremy Hyde MD Not available 04/01/2024 08:18:42 04/29/2024 [id number] Patient Instruct ions Following Viscosupplementation Injections Dr. [...] call Dr. Hyde? s office immediately at [phone]. flori Not available 04/29/2024 09:11:58 3 views of the r ight shoulder were obtained on 02/26/2024 in the [facility] office. There are moderate glenohumeral degenerative changes [...] observ ation record ed. [email or web address] [facility] [address] [address], [place], [address], 03/27/2024 11:35:34 03/26/20 24 03/26/2024 , arthelliot diallo , godfrey vianney No observ ation record ed. [email or web address] [address] [facility], [place], [address], 03/27/2024 11:35:26 Result Notes None recorded. Problems Name Problem SNOMED Code Status Onset Date Resolution Date Notes Provider Name and Address Organization Details Recorded Time Degenerativ e joint disease of shoulder region 80115927 Active 2022 Marck Collins MD [address], [place], [address], [place] [facility], [facility] 3 10:32:16 Rupture of tendon of biceps 631200682 Active 2022 Marck Collins MD [address], [place], [address], [place] [facility], [facility] 3 10:32:33 Chronic pain of right upper limb 2899810078742 9108 Active 2023 Jeremy Hyde MD [address], [facility] [place], [address], [place] [facility], [facility] 4 08:36:33 Osteoarthri tis of joint of right shoulder region 1274586586429 00 Active 2023 Jeremy Hyde MD [address], [facility] [place], [address], [place] [facility], [facility] 4 08:41:25 Problem Notes None recorded. Procedures Surgical History Date Name Laterality Status Provider Name and Address Organization Details Recorded Time 4 SAB Shoulder GH Inj w/US completed Jeremy Hyde MD [address], [place], [address], [place] [facility] 04/29/2024 09:11:50 Imaging Results Imaging Date Name Status LastModified by Organiz ation Details LastModified Time 03/26/2024 MR, arthrogram, shoulder completed [email or web address] [facility] [address], [address], 03/27/2024 11:35:34 03/26/2024 MR, arthrogram, shoulder completed [email or web address] [facility] [address] [place] [address], [place], [address], 03/27/2024 11:35:26 Procedure Notes None recorded. Medical [...] Updated DateTime 02/26/2024 180.34 cm 24.4 kg/m2 58653.[address] [place] [facility] 02/26/2024 08:27:14 Date Recorded Body height Body mass index (BMI) Body weight Provider Name and Address Organization Details Last Updated DateTime 04/01/2024 180.34 cm 24.5 kg/m2 53291.26 g Crystal Tenorio [facility] 04/01/2024 09:56:23 Date Recorded Body height Body mass index (BMI) Body weight Provider Name and Address Organization Details Last Updated DateTime 04/29/2024 180.34 cm 24.7 kg/m2 12667.85 g Crystal Tenorio [facility] 04/29/2024 08:48:28 Date Recorded Body height Body mass index (BMI) Body weight Provider Name and Address Organization Details Last Updated DateTime 12/27/2022 210.82 cm 17.3 kg/m2 30189.7 g Hannah Mullins [facility], [facility] 12/27/2022 10:09:48 Social History Question Answer Notes LastModified by Organizat ion Details LastModified Time Tobacco Smoking Status Never Smoker Hannah Mullins null, [place] [facility] 12/27/2022 10:09:55 What Is Your Level Of Alcohol Consumption? None [email or web address] Information not available 12/27/2022 Are You Currently Employed? 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 No [email or web address] Information not available 12/27/2022 Do You Or Have You Ever Used Any Other Forms Of Tobacco Or Nicotine? No [email or web address] Information not available 12/27/2022 Sex: Unknown Functional Status None recorded. Mental Status None recorded. Family History Relationship Description Onset Age of this Age Resolved Age Notes LastModified by Organization Details LastModified Time Mother History of cancer of unknown primary site [email or web address] Not available 08:27:49 Medical History Condition Response Asthma Y Past Encounters Encounter ID Performer Location Encounter Start Date Encounter Closed Date Diagnosis/Indication Diagnosis SNOMED-CT Code Diagnosis ICD10 Code Diagnosis Note [id number] MD LINH [address] [address] 12/27/2022 09:52:39 12/27/2022 10:33:12 Pain of right shoulder joint 1427634487 3770531 M25.511 Degenerati ve joint disease of shoulder region 41981987 M19.019 Rupture of tendon of biceps 059227123 M66.829 [id number] MD DONY Smith [address] [address] 04/13/2023 08:47:15 04/13/2023 09:30:29 Rupture of tendon of biceps 776108976 M66.829 [id number] MD DONY Kirk [address] [address] 02/26/2024 08:02:06 02/26/2024 08:50:32 Rupture of tendon of biceps 803679592 M66.829 Chronic pa in of right upper limb 9898596633 6412032 M25.511 G89.29 Osteoarthr itis of joint of right shoulder region 4047256082 17600 M19.211 [id number] MD DONY Kirk [address] [address] 04/01/2024 09:46:44 04/01/2024 10:30:32 Osteoarthritis of joint of right shoulder region 1240660529 43054 M19.211 Rupture of tendon of biceps 837596828 M66.829 Chronic pa in of right upper limb 3526512431 4907026 M25.511 G89.29 [id number] MD LINH [address] [address] 04/29/2024 08:44:28 04/29/2024 09:11:35 Osteoarthritis of joint of right shoulder region 1415681776 73494 M19.211 Rupture of tendon of biceps 469260917 M66.829 Chronic pa in of right upper limb 9039273804 5157521 M25.511 G89.29 Health Concerns Section Related Observation LastModified by Organization Detai ls LastModified Time None Recorded Concern Status LastModified by Organization Details LastModified Time None Recorded Advance Directives Directive None Recorded Payers Encounter Date Sequence Insurance Name Policy Number Policy Castano Covered Member ID Castano Member ID Guarantor Name 12/27/2022 1 [facility] [id number] Rainer Nava [id number] Rainer Nava 04/13/2023 1 [facility] [place] [id number] Rainer Nava [id number] Rainer Nava 02/26/2024 1 [place] [id number] Rainer Nava [id number] Rainer Nava 04/01/2024 1 [place] [id number] Rainer Nava [id number] Rainer Nava Notes Date Note Type [...] Marck Collins MD [address], [place], [address], [place] [facility] 12/27/2022 10:33:42 04/13/2023 text/html Rainer returns [...] Marck Collins MD [address], [place], [address], [place] [facility] 04/13/2023 09:24:48 02/26/2024 text/html Very pleasant [...] He smokes cigars. 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 PRIOR JK:Rainer returns for follow-up of his [...] Jeremy Hyde MD [address], [place], [address], [place] [facility] 02/27/2024 06:44:30 04/01/2024 text/html Patient returns [...] He smokes cigars. 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 PRIOR JK:Rainer returns for follow-up of his [...] Jeremy Hyde MD [address], [place], [address], [place] [facility] 04/01/2024 12:10:13 04/29/2024 text/html He reports [...] He smokes cigars. 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 PRIOR JK:Rainer returns for follow-up of his [...] Jeremy Hyde MD [address], [place], [address], [place] [facility] 04/29/2024 10:05:19
--- OUTSIDE RECORDS SUMMARY | 2024-08-16 09:58 | XMS_ITS | Encounter Summary ---
Author Organization [facility] Address [address] [place] [address] Care Team Providers Care Interactive Multimedia Designer Name Role Phone Elvia Billings Primary Care [...] Office Visit Internal Medicine - [facility] [address] [place] [address] Ethan Vides MD [address] [place] [address] documented as of this encounter Procedures Procedure [...] effects/complications. ??A timeout was performed as per [facility]/[place] policy. The patient was placed in a [...] on 03/26/2024 12:56 PM. Workstation Name - [id number] 0.1 Procedure Note Stephon Kirk MD - [...] sideeffects/complications. A timeout was performed as per [facility]/[place]. The patient was placed in a [...] MD on 03/26/2024 12:56 PM.Workstation Name - [id number] 0.1 Jeremy Hyde MD IMG FLUOROSCOPY PROCEDURES Fi nal Result documented in this encounter Visit Diagnoses Diagnosis Pain in right shoulder Other chronic pain documented in this encounter Care Teams Interactive Multimedia Designer Relationship Specialty Start Date End Date Elvia Billings PA [address] [place] [address] PCP - General 03/19/24 07/04/24 documented as of this encounter
== END 2024-08-15 09:13 | disposition home or self-care (01) ==
LOC: HO.HOSX 09:12
PROVIDERS: Visit Provider Orthopaedic Surgery
DX: M25.811 Other specified joint disorders, right shoulder (principal); M19.011 Primary osteoarthritis, right shoulder; M75.01 Adhesive capsulitis of right shoulder
CPT/HCPCS: 73030

== ENCOUNTER 2024-10-04 08:16 | Day surgery (SDC) | payer BC, SELFPAY ==
--- OUTSIDE RECORDS SUMMARY | 2024-08-15 13:13 | XMS_ITS | Clinical Summary ---
Author Organization [facility] Address [address] [place] [address] Care Team Providers Care Director Script Name Role Phone Pcp, No Primary Care [...] age to complete this topic Care Teams Director Script Relationship Specialty Start Date End Date Pcp, No PCP - General General Medicine 08/08/23
--- OUTSIDE RECORDS SUMMARY | 2024-08-15 13:13 | XMS_ITS | Encounter Summary ---
Author Organization [facility] Address [address] [place] [address] Care Team Providers Care Portfolio Administrator Name Role Phone Elvia Billings Primary Care Provider [phone] Encounter Details Date Type Department Care Team [...] Office Visit Internal Medicine - [facility] [address] [facility] [place] [address] Ethan Vides MD [address] [place] [address] documented as of this encounter Procedures Procedure [...] effects/complications. ??A timeout was performed as per [facility]/[place] policy. The patient was placed in a [...] on 03/26/2024 12:56 PM. Workstation Name - [id number] 0.1 Procedure Note Stephon Kirk MD - [...] sideeffects/complications. A timeout was performed as per [facility]/Jaclyn. The patient was placed in a [...] MD on 03/26/2024 12:56 PM.Workstation Name - [id number] 0.1 Jeremy Hyde MD IMG FLUOROSCOPY PROCEDURES Fi nal Result documented in this encounter Visit Diagnoses Diagnosis Pain in right shoulder Other chronic pain documented in this encounter Care Teams Portfolio Administrator Relationship Specialty Start Date End Date Elvia Billings PA [address] [place] [address] PCP - General 03/19/24 07/04/24 documented as of this encounter
--- OUTSIDE RECORDS SUMMARY | 2024-08-15 13:13 | XMS_ITS | Clinical Summary ---
Author Organization [facility] Address [address] [place] [address] Care Team Providers Care Clinical Nursing Manager Name Role Phone Elvia Billings PA-C Primary Care Provider [phone] Medications Medication Sig Dispensed Refills Start Date [...] age to complete this topic Care Teams Clinical Nursing Manager Relationship Specialty Start Date End Date Elvia Billings PA-C [address] [place] [address] PCP - General Physician Laborer Prestressed Concrete 06/10/19
--- OUTSIDE RECORDS SUMMARY | 2024-08-15 13:13 | XMS_ITS | Clinical Summary ---
Author Organization [facility] [place] [address] Phone Care Team Providers Care Hydrator Name Role Phone Ethan Vides MD Primary Care Provider [phone] Surgical History Surgery Date Site/Laterality Comments OTHER [...] AM EDT Office Visit Internal Medicine - [facility] [address] [facility] [place] [phone] Ethan Vides MD [address] [facility] [place] [address] Health Maintenance Due Date Last Done Comments [...] patient's age to complete this topic Insurance [facility] Care Teams Hydrator Relationship Specialty Start Date End Date Ethan Vides MD [address] [place] [address] PCP - General Internal Medicine 07/05/24
--- OUTSIDE RECORDS SUMMARY | 2024-08-15 13:13 | XMS_ITS | Encounter Summary ---
Author Organization [facility] Address [address] [place] [address] Care Team Providers Care Measurement Advisor Name Role Phone Elvia Billings Primary Care Provider [phone] Encounter Details Date Type Department Care Team [...] Office Visit Internal Medicine - [facility] [address] [place] [address] Ethan Vides MD [address] [place] [address] documented as of this encounter Procedures Procedure [...] pain documented in this encounter Care Teams Measurement Advisor Relationship Specialty Start Date End Date Elvia Billings PA [address] [place] [address] PCP - General 03/19/24 07/04/24 documented as of this encounter
[2024-08-28 10:32] VITALS: BMI 24.4
[2024-10-04 09:02] VITALS: BP 126/72; PULSE 53; RESP 18; TEMP 36.6; O2SAT 97; BMI 24.5
[2024-10-04] MEDS: Lactated Ringers 1,000 ML 100 ML IVCONT (09:24)
--- NOTE | 2024-10-04 11:25 | P.CONAN_ITS ---
Documented by User: Ursula Bush NP 10/02/24 11:51 HPI - Anesthesia Eval Consult details Narrative: 53yo M for Right Shoulder Arthroscopy, distal clavicle excision, acromioplasty, capsular release, manipulation PMFSH Active Problems Active Problems: All Active Problems Impingement of right shoulder (Acute) Right shoulder pain (Acute) Past Medical History Medical History (Updated 08/28/24 @ 10:30 by Christianne Beasley RN) Arthritis Asthma, allergic Hyperlipidemia Colitis PAC (premature atrial contraction) Impingement of right shoulder Surgical History Surgical History (Updated 08/28/24 @ 10:30 by Christianne Beasley RN) H/O colonoscopy Social History Social History (Updated 09/20/24 @ 13:12 by ZUHAIR Cuellar) Are you a primary weekend caregiver to a significant other at home: No Do you presently have visiting nurse or other home services: No Patient Tobacco Use Status: Current someday Tobacco user Tobacco use type: Cigar Use of substances other than those prescribed or required for medical reasons: No Have you been hit, kicked, punched, or otherwise hurt by someone within the past year? 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 [employer] Allergies Allergy/AdvReac Type Severity Reaction Status Date / Time penicillin G Allergy Mild Rash Verified 08/27/24 08:58 Active Medications: Current Medications Clindamycin Phosphate (Cleocin) 900 mg in 50 mls @ 50 mls/hr IV PREOP ONE Stop: 10/04/24 06:51 Home Medications ?Medication ?Instructions ?Recorded ?Confirmed ?Last Taken ?Type creatine monohydrate 1.5 gram/15 1.5 g PO DAILY 08/28/24 08/28/24 Unknown History mL oral liquid zinc-magnesium aspart-vit B6 10 1 cap PO DAILY 08/28/24 08/28/24 Unknown History mg-150 mg-3.83 mg capsule Exam Height,Weight and Vital Signs: Height 5 ft 11 in Weight 79.379 kg Assessment and Plan Assessment Anesthesia Assessment: Chart Reviewed Documented by User: Ade Valdez DO 10/04/24 11:27 [facility] Past Medical History Medical History (Updated 08/28/24 @ 10:30 by Christianne Beasley RN) Arthritis Asthma, allergic Hyperlipidemia Colitis PAC (premature atrial contraction) Impingement of right shoulder Family History Family history of problems with anesthesia: No Surgical History Surgical History (Updated 08/28/24 @ 10:30 by Christianne Beasley RN) H/O colonoscopy History of Problems with Anesthesia: No Social History Social History (Updated 09/20/24 @ 13:12 by ZUHAIR Cuellar) Are you a primary weekend caregiver to a significant other at home: No Do you presently have visiting nurse or other home services: No Patient Tobacco Use Status: Current someday Tobacco user Tobacco use type: Cigar Use of substances other than those prescribed or required for medical reasons: No Have you been hit, kicked, punched, or otherwise hurt by someone within the past year? 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 Allergies Allergy/AdvReac Type Severity Reaction Status Date / Time penicillin G Allergy Mild Rash Verified 08/27/24 08:58 Home Medications ?Medication ?Instructions ?Recorded ?Confirmed ?Last Taken ?Type creatine monohydrate 1.5 gram/15 1.5 g PO DAILY 08/28/24 08/28/24 Unknown History mL oral liquid zinc-magnesium aspart-vit B6 10 1 cap PO DAILY 08/28/24 08/28/24 Unknown History mg-150 mg-3.83 mg capsule Exam Exam Date and Time: 10/04/24 1120 Height,Weight and Vital Signs: Height 5 ft 11 in Weight 79.379 kg Vital Signs Temperature 98 F 10/04/24 09:02 Pulse Rate 53 10/04/24 09:02 Respiratory Rate 18 10/04/24 09:02 Blood Pressure 126/72 10/04/24 09:02 Pulse Oximetry 97 10/04/24 09:02 Oxygen Delivery Method Room Air 10/04/24 09:02 Temperature 98 F 10/04/24 09:02 Pulse Rate 53 10/04/24 09:02 Respiratory Rate 18 10/04/24 09:02 Blood Pressure 126/72 10/04/24 09:02 Pulse Oximetry 97 10/04/24 09:02 Oxygen Delivery Method Room Air 10/04/24 09:02 Airway Mallampati Class: I TM Dist: >3cm Neck ROM: Full Loose/Missing/Broken Teeth: Yes (2 missing teeth) Heart: S1S2 Lungs: CTAB Assessment and Plan Assessment Anesthesia Assessment: Anesthesia Plan Discussed and Chart Reviewed Final Anesthetic Review Family History of Problems with Anesthesia: No History of Problems with Anesthesia: No NPO: Yes ASA Class: II Final Preanesthetic Review: No Changes in Pt Med Stat, Meds/Allgs Chart Reviewed, Consent Obtained/Reviewed and Anes Risks/Benef Reviewed Patient Risk: Low Procedure Risk: Intermediate Anesthetic Plan Anesthetic Plan: GA, Regional Block (right brachial plexus block) and Agree w/ Assess. and Plan Disposition: Standard PACU
[2024-10-04] MEDS: Clindamycin Phosphate/D5W 900 MG/50 ML PIGGYBACK 50 MG IV (11:50)
[2024-10-04 13:14] VITALS: BP 121/66; PULSE 60; RESP 12; TEMP 36.1; O2SAT 97
[2024-10-04 13:19] VITALS: BP 116/67; PULSE 68; RESP 20; O2SAT 97
--- NOTE | 2024-10-04 13:19 | P.BOP_ITS ---
Brief Operative Note Date of Service: 10/04/24 Pre-op diagnosis: Right shoulder impingement syndrome, right shoulder glenohumeral joint arthritis, right shoulder acromioclavicular joint arthritis, right shoulder adhesive capsulitis Post-op diagnosis: same Procedure: Right shoulder arthroscopic acromioplasty, right shoulder arthroscopic distal clavicle excision, right shoulder arthroscopic glenohumeral joint debridement, right shoulder arthroscopic anterior capsular release, right shoulder manipulation under anesthesia Implants: none Surgeon: Carrillo Hauser MD Anesthesia: GETA and regional Was an Developing Machine Tender used for this Procedure?: No Estimated blood loss (mL): 10 Pathology: none sent Condition: stable Disposition: PACU
--- NOTE | 2024-10-04 13:20 | W.PM.OPN ---
Operative Note Operative Note Date of Service: 10/04/24 Narrative: After the patient was identified as Rainer Nava and his right shoulder was initialed by myself the patient was brought to the holding area where a right shoulder interscalene regional block was performed by the anesthesiologist in routine fashion. The patient was then brought to the operating room where general anesthesia was induced by the anesthesiologist in routine fashion. Because of the patient's allergy to penicillin he was given 900 mg of IV clindamycin preoperatively for infection prophylaxis. Examination under anesthesia of the patient's right shoulder showed decreased passive range of motion when compared to the left shoulder. The patient's right shoulder had passive forward flexion to 120 degrees compared to 170 degrees, external rotation to 20 degrees compared to 60 degrees, and internal rotation to 30 degrees compared to 60 degrees. The patient was gently positioned in the beach chair position with all bony prominences well padded. The patient's right shoulder region and upper extremity were prepped and draped in sterile fashion. A formal time-out was completed. A #11 scalpel blade was used to make a posterior portal 2 cm inferior and 1 cm medial to the posterolateral corner of the acromion. Blunt trocar technique was used to enter the glenohumeral joint in routine fashion. An anterior portal was made just lateral to the coracoid process after proper positioning was confirmed using a spinal needle. Diagnostic arthroscopy showed diffuse grade 2 and 3 degenerative changes of the glenoid and humeral head articular surfaces. The articular surfaces of the glenoid and humeral head were then made smooth using the arthroscopic shaver. There was no evidence of rotator cuff tearing. There was no evidence of injury to the biceps tendon or its insertion onto the glenoid. There was inflammation of the anterior joint capsule consistent with adhesive capsulitis. The ArthroCare Wand was then used to perform an anterior capsular release between the inferior border of the biceps tendon and the superior border of the subscapularis tendon. The arthroscope was then placed from the posterior portal into the subacromial space. A lateral portal was made 2 fingerbreadths lateral to the anterior lateral corner of the acromion. The ArthroCare Wand was used to ablate soft tissues along the undersurface of the acromion as well as to excise the coracoacromial ligament. There was a sharp spur along the undersurface of the acromion which was removed using the hooded bur. The arthroscope was then placed into the lateral portal and the acromioplasty was completed with the bur in the posterior portal using the posterior aspect of the acromion as a cutting block. The ArthroCare Wand was then brought in through the anterior portal and was used to ablate soft tissues along the acromioclavicular joint and distal clavicle. The posterior and superior ligamentous structures were left intact. A distal clavicle excision of 8 mm was performed using the fluted bur. Any remaining bursal tissue was removed using the arthroscopic shaver. The subacromial space was irrigated and then drained. All arthroscopic instruments were removed. A gentle manipulation under anesthesia was then performed. The 3 portals were closed with 3-0 nylon interrupted suture. The subacromial space was injected with Marcaine. Dry sterile dressing was placed over all incisions. The patient's right upper extremity was placed into a sling. The patient was awoken and extubated in the operating room. The patient was transferred to the recovery room in stable condition.
[2024-10-04 13:24] VITALS: BP 111/64; PULSE 62; RESP 20; O2SAT 97
[2024-10-04 13:25] VITALS: BP 118/68; PULSE 70; RESP 18; O2SAT 97
[2024-10-04 13:40] VITALS: BP 122/80; PULSE 64; RESP 20; TEMP 36.2; O2SAT 97
== END 2024-10-04 14:07 | disposition home or self-care (01) ==
PROVIDERS: PCP Internal Medicine; Visit Provider Orthopaedic Surgery
PROC: (CPT 29805; principal; 2024-10-04 12:10)
DX: M75.41 Impingement syndrome of right shoulder (principal); M75.01 Adhesive capsulitis of right shoulder; M19.011 Primary osteoarthritis, right shoulder; M25.811 Other specified joint disorders, right shoulder; Z88.0 Allergy status to penicillin
CPT/HCPCS: 29824; 29825; 29826; J0131; J0171; J0736; J1100; J2003; J2250; J2405; J2704; J2795

== ENCOUNTER → 2024-10-04 08:16 | Outpatient (BNV) | payer BC, SELFPAY | PROVIDERS: PCP Internal Medicine; Visit Provider Orthopaedic Surgery | DX: M75.41 Impingement syndrome of right shoulder (principal); M19.011 Primary osteoarthritis, right shoulder; M75.01 Adhesive capsulitis of right shoulder | CPT/HCPCS: 29823; 29824; 29826 ==

== ENCOUNTER 2024-10-17 08:49 | Outpatient (AMB) | payer BC, SELFPAY ==
--- NOTE | 2024-10-17 08:59 | A.OFFVIS_ITS ---
Vital Signs 10/17/24 09:00 Height 5 ft 11 in Weight 175 lb BMI 24.4 Intake Visit Reasons: PO RT shoulder 10/04/24 Intake Note: Rainer is a 53 year old male who presents today for his first post-operative visit after undergoing a right shoulder arthroscopy on 10/04/24. Patient reports he has discontinued the Oxycodone and has returned to work. Sutures removed in office today and steri strips applied. He continues with his home stretching program. He denies any fevers or chills. Allergies penicillin G Allergy (Mild, Verified 10/17/24 09:00) Rash Medication List - Last Reconciled 10/17/24 by Carrillo Hauser MD creatine monohydrate 1.5 grams PO DAILY zinc-magnesium aspart-vit B6 10-150-3.83 mg 1 cap PO DAILY PFSH Medical History (Updated 08/28/24 @ 10:30 by Christianne Beasley RN) Arthritis Asthma, allergic Hyperlipidemia Colitis PAC (premature atrial contraction) Impingement of right shoulder Surgical History (Updated 08/28/24 @ 10:30 by Christianne Beasley RN) H/O colonoscopy Social History (Updated 09/20/24 @ 13:12 by ZUHAIR Cuellar) Are you a primary health and social care teacher to a significant other at home: No Do you presently have visiting nurse or other home services: No Patient Tobacco Use Status: Current someday Tobacco user Tobacco use type: Cigar Current occupational status: employed 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 Nava is doing well after undergoing right shoulder arthroscopic surgery on 10/04/2024. His sutures were removed and Steri-Strips placed over his incisions. He will continue with his home stretching program. The do's and don'ts of lifting were discussed at length with the patient. He will contact me prior to his follow-up appointment in 2 months should any questions or concerns arise. Feel call me at any time should questions regarding his orthopedic management arise. Coding Level of Care Code Global (20836) Diagnoses Right shoulder pain M25.511
[2024-10-17 09:00] VITALS: BMI 24.4
--- OUTSIDE RECORDS SUMMARY | 2024-10-17 09:16 | XMS_ITS | Clinical Summary ---
Author Organization [facility] Address [address] [place] [address] Care Team Providers Care Broodmare Foreman Name Role Phone Elvai Billings PA-C Primary Care Provider [phone] Medications Medication Sig Dispensed Refills Start Date [...] age to complete this topic Care Teams Broodmare Foreman Relationship Specialty Start Date End Date Elvia Billings PA-C [address] [place] [address] PCP - General Physician Equity Director 06/10/19
--- OUTSIDE RECORDS SUMMARY | 2024-10-17 09:16 | XMS_ITS | Clinical Summary ---
Author Organization [facility] Address [address] [place] [address] Care Team Providers Care Business Editor Name Role Phone Pcp, No Primary Care [...] at Not on file Legal Sex Male 8:37 AM EST Gender Identity Not on file Sexual [...] (1 of 3 - 19+ 3-dose series) 11/03 Colonoscopy 2014 Pneumococcal Vaccines 50+ (1 of 1 - PCV) 11/21/2019 Zoster (Shingles) Vaccine (1 of 2) 11/21/2019 COVID-19 Vaccine (1 - season) 2024 Influenza Vaccine 01/03/2025 Insurance [facility] INDIVIDUAL EXCHANGE PPO Care Teams Business Editor Relationship Specialty Start Date End Date Pcp, No PCP - General General Medicine 08/08/23
--- OUTSIDE RECORDS SUMMARY | 2024-10-17 09:16 | XMS_ITS | Encounter Summary ---
Author Organization [facility] Address [address] [place] [address] Care Team Providers Care Urban Design Consultant Name Role Phone Elvia Billings Primary Care Provider [phone] Encounter Details Date Type Department Care Team [...] Contact Info) Description 01/09/2025 2:00 PM EDT Appointment [facility] Endoscopy [address] [place] [phone] Isac Mora MD [address] [address] 03/04/2025 11:30 AM EDT [facility] [address] [facility] [place] [phone] Ethan Vides MD [address] [place] [address] documented as of this encounter Procedures Procedure [...] effects/complications. ??A timeout was performed as per [facility]/Tiff policy. The patient was placed in a [...] on 03/26/2024 12:56 PM. Workstation Name - [id number] 0.1 Procedure Note Stephon Kirk MD - [...] sideeffects/complications. A timeout was performed as per [facility]. The patient was placed in a supine [...] MD on 03/26/2024 12:56 PM.Workstation Name - [id number] 0.1 Jeremy Hyde MD IMG FLUOROSCOPY PROCEDURES Fi nal Result documented in this encounter Visit Diagnoses Diagnosis Pain in right shoulder Other chronic pain documented in this encounter Care Teams Urban Design Consultant Relationship Specialty Start Date End Date Elvia Billings PA [address] [place] [address] PCP - General 03/19/24 07/04/24 documented as of this encounter
--- OUTSIDE RECORDS SUMMARY | 2024-10-17 09:16 | XMS_ITS | Clinical Summary ---
Author Organization [facility] [place] [address] Phone Care Team Providers Care Shipwright Supervisor Name Role Phone Ethan Vides MD Primary Care Provider [phone] Encounters Date Type Department Care Team Description 10/09/2024 Telephone [facility] - [facility] [address] [place] [phone] Isac Mora MD information needed/colonoscopy from Last 3 Months Surgical History Surgery Date Site/Laterality Comments OTHER SURGICAL HISTORY december 2014 PROCEDURE: DRAIN RETROPERITONEAL ABSCESS,PERCUT Medical History Medical History Date Comments Ischemic colitis (CMS/HCC V24) D X:Ischemic colitis (HCC) PAC (premature atrial contraction) 07/17/2015 [...] Info) Description 01/09/2025 2:00 PM EDT Appointment [facility] Endoscopy [address] [place] [phone] Isac Mora MD 175 [facility] [address] [place] [address] 03/04/2025 11:30 AM EDT [facility] [address] [place] [address] Ethan Vides MD [address] [place] [address] Health Maintenance Due Date Last Done Comments Hepatitis B Vaccines (1 of 3 - 19+ 3-dose series) 1988 Pneumococcal Vaccine: 50+ Years (1 of 1 - PCV) 11/21/2019 COVID-19 Vaccine (3 - 2023-2 5 season) 2024 10/11/2020, 09/20/2020 Zoster Vaccines (2 of 2) 04/19/2024 02/23/2024 Colorectal Cancer Screening: Colonoscopy 09/12/2024 Depression Screening 09/12/2024 HIV Screening 09/12/2024 Hepatitis C Screening 09/12/2024 Social Influencers of Health Screening 09/12/2024 Influenza Vaccine (Season Ended) 2025 Cholesterol Screening (Lipid Panel) 03/01/2029 03/01/2024 DTaP,Tdap,and [...] age to complete this topic Meningococcal B Vaccine Aged Out No l onger eligible based on patient's age to complete [...] patient's age to complete this topic Insurance [employer] [place] ([facility]) [employer] [place] ([facility]) Care Teams Shipwright Supervisor Relationship Specialty Start Date End Date Ethan Vides MD [address] [place] [address] PCP - General Internal Medicine 07/05/24
--- OUTSIDE RECORDS SUMMARY | 2024-10-17 09:16 | XMS_ITS | Encounter Summary ---
Author Organization [facility] Address [address] [place] [address] Care Team Providers Care Web Database Developer Name Role Phone Elvia Billings Primary Care Provider [phone] Encounter Details Date Type Department Care Team [...] Info) Description 01/09/2025 2:00 PM EDT Appointment [facility] Endoscopy [address] [place] [phone] Isac Mora MD [address] [address] 03/04/2025 11:30 AM EDT [facility] [address] [facility] [place] [phone] Ethan Vides MD [address] [facility] [place] [address] documented as of this encounter Procedures Procedure [...] on 03/26/2024 1:01 PM. Workstation Name - [id number] Procedure Note Regulo Cedeño MD - 04/01/2024 [...] MD on 03/26/2024 1:01PM. Workstation Name - [id number] Jeremy Hyde MD IMG MRI PROCEDURES Final Resu lt documented in this encounter Visit Diagnoses Diagnosis Pain in right shoulder Other chronic pain documented in this encounter Care Teams Web Database Developer Relationship Specialty Start Date End Date Elvia Billings PA [address] [place] [address] PCP - General 03/19/24 07/04/24 documented as of this encounter
== END 2024-10-17 09:18 | disposition home or self-care (01) ==
LOC: HO.HOS 08:49
PROVIDERS: PCP Internal Medicine; Visit Provider Orthopaedic Surgery
DX: M25.511 Pain in right shoulder (principal)
CPT/HCPCS: 99024

== ENCOUNTER 2025-01-07 07:58 | Outpatient (AMB) | payer BC, SELFPAY ==
--- OUTSIDE RECORDS SUMMARY | 2024-03-26 08:32 | XMS_ITS | Encounter Summary ---
Author Organization [facility] Address [address] [place] [address] Care Team Providers Care Campaign Manager Name Role Phone Elvia Billings Primary Care Provider Encounter Details Date Type Department Care Team (Latest Contact Info) Description 03/26/2024 8:32 AM EDT Hospital Encounter TH HISTORIC ENCOUNTERS EASTERN CONVERSION ONLY Pain in right shoulder; Other chronic pain Social History Tobacco Use Types Packs/Day Years Used Date Smoking Tobacco: Never Smokeless Tobacco: Never Alcohol Use Standard Drinks/Week Comments Not Currently 0 (1 standard drink = 0.6 oz pur e alcohol) Sex and Gender Information Value Date Recorded Sex Assigned at Not on file Legal Sex Male 10:41 PM EST Gender Identity Not on file Sexual Orientation Not on file documented as of this encounter Last Filed Vital Signs Vital Sign Reading Time Taken Comments Blood Pressure - - Pulse - - Temperature - - Respiratory Rate - - Oxygen Saturation - - Inhaled Oxygen Concentration - - Weight 78.5 kg (173 lb) 06/24/2019 9:43 AM EST Height 180.3 cm (5' 11 ) 06/24/2019 9:43 AM EST Body Mass Index 24.13 06/24/2019 9:43 AM EST documented in this encounter Plan of Treatment Upcoming Encounters Date Type Department Care Team (Late st Contact Info) Description 01/09/2025 2:00 PM EDT Hospital Encounter [facility] [address] [place] [phone] Isac Mora MD [address] [address] 03/04/2025 11:30 AM EDT [facility] [address] [facility] [place] [phone] Ethan Vides MD [address] [facility] [place] [address] documented as of this encounter Procedures Procedure Name Priority Date/Time Associated Diagnosis Comments MRI SHOULDER RIGHT WITH CONTRAST Routine 03/26/2024 9:48 AM EDT Pain in right shoulder Other chronic pain documented in this encounter Results * MRI SHOULDER RIGHT WITH CONTRAST (03/26/2024 9:48 AM EDT) Anatomical Region Laterality Modality Magnetic Resonan ce 02/27/2024 12:4 3 PM EDT Narrative 03/26/2024 1:01 PM EDT EXAM: MRI SHOULDER RIGHT WITH CONTRAST INDICATION: Right shoulder pain, unspecified chronicity, Other chronic pain, chronic increasing right shoulder pain. History of biceps rupture and dislocation TECHNIQUE: Multiplanar sequences were acquired through the joint following the arthrographic infusion of contrast diluted in normal saline. CONTRAST: 0.1 mL of Clariscan intra-articular, diluted in normal saline. COMPARISON: Same day arthrogram image. FINDINGS: Articular cartilage and bone marrow signal: Severe loss of articular cartilage lining the glenohumeral joint space. There is a large ossified loose body in the subcoracoid recess measuring 2.8 x 1.7 cm. There may also be a 2nd small loose body in the biceps tendon sheath. Marginal osteophytes arise from the inferior margin of the glenohumeral joint. The bone marrow signal is within normal limits. Labrum: Posterior extension of the superior sublabral recess, concerning for a SLAP tear. There is a well-defined tear through the posterior labrum with contrast extending through this defect and coalescing into a small cyst. Capsule and glenohumeral ligaments: Anterior capacious capsule. The glenohumeral ligaments are intact. Rotator cuff: Degeneration of the supraspinatus tendon insertion. There is imbibed contrast material insinuated within its articular fibers, consistent with numerous small partial thickness rotator cuff tears. Insertional infraspinatus tendinopathy without tear. The subscapularis and teres minor are preserved. Biceps tendon: The biceps tendon is not ruptured or dislocated. AC joint: Mild arthritis. Acromial morphology: Type II morphology without impingement. Bursal spaces: No bursitis. There is contrast extravasation in the anterior deltoid related to the arthrographic approach. Miscellaneous: None. CONCLUSION: 1. Severe glenohumeral joint space osteoarthritis. Loose bodies. 2. Tears of the posterior and superior aspects of the glenoid labrum. 3. Severe insertional supraspinatus tendinosis with numerous small articular surface partial tears. 4. Mild AC joint space arthrosis. Report reviewed and signed by : Dr. Regulo Cedeño MD on 03/26/2024 1:01 PM. Workstation Name - [id number] Procedure Note Regulo Cedeño MD - 04/01/2024 EXAM: MRI SHOULDER RIGHT WITH CONTRAST INDICATION: Right shoulder pain, unspecified chronicity, Other chronicpain, chronic increasing right shoulder pain. History of biceps ruptureand dislocation TECHNIQUE: Multiplanar sequences were acquired through the joint followingthe arthrographic infusion of contrast diluted in normal saline. CONTRAST: 0.1 mL of Clariscan intra-articular, diluted in normal saline. COMPARISON: Same day arthrogram image. FINDINGS: Articular cartilage and bone marrow signal: Severe loss of articularcartilage lining the glenohumeral joint space. There is a large ossifiedloose body in the subcoracoid recess measuring 2.8 x 1.7 cm. There mayalso be a 2nd small loose body in the biceps tendon sheath. Marginalosteophytes arise from the inferior margin of the glenohumeral joint. Thebone marrow signal is within normal limits. Labrum: Posterior extension of the superior sublabral recess, concerningfor a SLAP tear. There is a well-defined tear through the posteriorlabrum with contrast extending through this defect and coalescing into asmall cyst. Capsule and glenohumeral ligaments: Anterior capacious capsule. Theglenohumeral ligaments are intact. Rotator cuff: Degeneration of the supraspinatus tendon insertion. Thereis imbibed contrast material insinuated within its articular fibers,consistent with numerous small partial thickness rotator cuff tears. Insertional infraspinatus tendinopathy without tear. The subscapularisand teres minor are preserved. Biceps tendon: The biceps tendon is not ruptured or dislocated. AC joint: Mild arthritis. Acromial morphology: Type II morphology without impingement. Bursal spaces: No bursitis. There is contrast extravasation in theanterior deltoid related to the arthrographic approach. Miscellaneous: None. CONCLUSION: 1. Severe glenohumeral joint space osteoarthritis. Loose bodies. 2. Tears of the posterior and superior aspects of the glenoid labrum. 3. Severe insertional supraspinatus tendinosis with numerous smallarticular surface partial tears. 4. Mild AC joint space arthrosis. Report reviewed and signed by : Dr. Regulo Cedeño MD on 03/26/2024 1:01PM. Workstation Name - [id number] Jeremy Hyde MD IMG MRI PROCEDURES Final Resu lt documented in this encounter Visit Diagnoses Diagnosis Pain in right shoulder Other chronic pain documented in this encounter Care Teams Campaign Manager Relationship Specialty Start Date End Date Elvia Billings PA [address] [place] [address] PCP - General 03/19/24 07/04/24 documented as of this encounter
--- OUTSIDE RECORDS SUMMARY | 2025-01-07 08:01 | XMS_ITS | Clinical Summary ---
Author Organization [facility] Address [address] [place] [address] Care Team Providers Care Utility Driver Name Role Phone Pcp, No Primary Care [...] 60 08/08/2023 8:46 AM EST Temperature 36.8 C (98.3 F) 08/08/2023 8:46 AM EST Respiratory Rate 16 08/08/2023 8:46 AM EST [...] - season) 2024 Influenza Vaccine 01/03/2025 Insurance [facility] INDIVIDUAL EXCHANGE PPO Care Teams Utility Driver Relationship Specialty Start Date End Date Pcp, No PCP - General General Medicine 08/08/23
--- OUTSIDE RECORDS SUMMARY | 2025-01-07 08:01 | XMS_ITS | Clinical Summary ---
Author Organization [facility] Address [address] [place] [address] Phone Care Team Providers Care Testing And Regulating Technician Name Role Phone Claudine Alejandra MD Primary Care Pro vider Allergies No known active allergies Medications No known medications Active Problems No known active problems Social History Tobacco Use Types Packs/Day Years Used Date Smoking Tobacco: Never Smokeless Tobacco: Never Alcohol Use Standard Drinks/Week Comments Yes 0 (1 standard drink = 0.6 oz pur e alcohol) 2 per week Education Answer Date Recorded Are you interested in more education? Not on brenda e 09/30/2022 Are you concerned about learning? Not on file 09/30/2022 No 09/30/2022 No 09/30/2022 Digital Access Answer Date Recorded No 10/29/2022 No 10/29/2022 No 10/29/2022 Reliable internet access at home? Not on file 10/29/2022 Device with a working camera? Not on file Sex and Gender Information Value Date Recorded Sex Assigned at Not on file Legal Sex Male 11:54 AM EDT Gender Identity Not on file Sexual Orientation Not on file Plan of Treatment Health Maintenance Due Date Last Done Comments LIPID PANEL 1969 DEPRESSION SCREENING 1981 HEPATITIS C SCREENING 11/21/1987 HIV ONE-TIME SCREENING (18-6 5 YEARS) 11/21/1987 SMOKING STATUS SCREENING (On ce After 26 Yrs) 11/21/1995 COLOGUARD 2014 COLONOSCOPY 2014 COLORECTAL CANCER SCREENING 2014 FIT TEST 2014 FOBT 2014 SIGMOIDOSCOPY 2014 VIRTUAL COLONOSCOPY 2014 PNEUMOCOCCAL VACCINES (50+ y ears) (1 of 1 - PCV) 11/21/2019 ZOSTER VACCINES (1 of 2) 11/21/2019 Adult Td,Tdap Booster 09/04/2023 09/03/2013 COVID-19 VACCINE (2023-2 5 season) 2024 09/20/2020 HEPATITIS A VACCINES Aged Out No long er eligible based on patient's age to complete this topic HIB VACCINES Aged Out No longer eligi ble based on patient's age to complete this topic MENINGOCOCCAL VACCINES (ACWY) Aged Out No longer eligible based on patient's age to complete this topic MENINGOCOCCAL VACCINES (B) Aged Out N o longer eligible based on patient's age to complete this topic Medical Devices Not on file Insurance [place] [address] [place] [address] HMO POS [facility] [place] [address] [place] [address] HMO POS Care Teams Testing And Regulating Technician Relationship Specialty Start Date End Date Claudine Alejandra MD [address] [place] [address] PCP - General Internal Medicine 04/11/19 Additional Source Comments The information contained in this document represents components of the legal health record. It is not the complete legal health record.[facility]
--- OUTSIDE RECORDS SUMMARY | 2025-01-07 08:01 | XMS_ITS | Clinical Summary ---
Author Organization [facility] Address [address] [place] [address] Care Team Providers Care Ammonia Solution Preparer Name Role Phone Elvia Billings PA-C Primary Care Provider [phone] Medications Medication Sig Dispensed Refills Start Date [...] Colon Cancer Screening (Colonoscopy) 2014 COVID-19 Vaccine (2023-2 5 season) 2024 10/11/2020, 09/20/2020 Shingrix-Zoster Vaccine (2 o f 2) 04/19/2024 02/23/2024 Influenza Vaccine (#1) 2025 DTap / Tdap / Td (3 - Td or Tdap) 03/01/2034 03/01/2024, 09/03/2013 Pneumococcal Vaccine Aged Out No long er eligible based on patient's age to complete this topic RSV Ped < 20 months Aged Out No longe r eligible based on patient's age to complete this topic Care Teams Ammonia Solution Preparer Relationship Specialty Start Date End Date Elvia Billings PA-C [address] [place] [address] PCP - General Physician Tire Servicer 06/10/19
--- OUTSIDE RECORDS SUMMARY | 2025-01-07 08:01 | XMS_ITS ---
Author Name [facility] Organization Unknown History of Medication Use Medication Directions Dispensed Refills Start Date End Date Stat Supartz FX 10 mg/mL intra-articular syringe Inject 2 mL by intra-articular route for 35 days. 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 2022-12-27 ProblemAct [facility] Rupture of tendon of biceps active 2022-12-27 ProblemAct [facility] Osteoarthritis of joint of right shoulder region active 2024-02-26 ProblemAct [facility] Chronic pain of right upper limb active 2024-02-26 ProblemAct [facility] Periorbital cellulitis of right eye active EncounterDiagnosisAct CCT Encounters Encounter Type Encounter Reason Primary Diagnosis Location Date Ambulatory [facility] 06/25/2024 Ambulatory [facility] 06/20/2024 Ambulatory [facility] 05/16/2024 Ambulatory [facility] 04/29/2024 Ambulatory [facility] 04/29/2024 Ambulatory [facility] 04/02/2024 Ambulatory [facility] 04/01/2024 Ambulatory [facility] 03/11/2024 Ambulatory [facility] 02/28/2024 Ambulatory [facility] 02/26/2024 Ambulatory [facility] 02/26/2024 Ambulatory [facility] 02/22/2024 Ambulatory [facility] 02/22/2024 Ambulatory [facility] 02/21/2024 Ambulatory [facility] 02/21/2024 Ambulatory [facility] 08/18/2023 Ambulatory Periorbital cellulitis Periorbital cellulitis [facility] 08/08/2023 Ambulatory [facility] 04/13/2023 Ambulatory [facility] 04/13/2023 Ambulatory [facility] 12/22/2022 Ambulatory [facility] 12/22/2022 [facility] 12/22/2022 Ambulatory [facility] 12/22/2022 Care Team Organization Name Specialty Phone Email Start Date End [facility] 10/16/2024 [facility] MEHRDAD MAXWELL Primary Care 07/07/2024 [employer] [facility] [employer] [facility] 08/08/2023 08/21/2024 [employer] 08/08/2023 [employer] NO PCP Primary Care 08/08/2023 [facility] Ethan Vides Primary Care 04/12/20222023
--- NOTE | 2025-01-07 08:05 | MHC.OFFVIS ---
Vital Signs 01/07/25 08:08 Height 5 ft 11 in Weight 175 lb BMI 24.4 Intake Visit Reasons: PO RT shoulder 10/04/24 Intake Note: Rainer is a 54 year old male who presents today for a post op right shoulder 10/04/24 . At last visit on 10/17/24 we discussed to continue at home exercises. Patient states that he would like to attend physical therapy. He states that the at home exercises are making his shoulder stiff . He denies any fevers or chills. Allergies penicillin G Allergy (Mild, Verified 01/07/25 08:07) Rash Medication List - Last Reconciled 01/07/25 by Carrillo Hauser MD creatine monohydrate 1.5 grams PO DAILY zinc-magnesium aspart-vit B6 10-150-3.83 mg 1 cap PO DAILY PFSH Medical History (Updated 08/28/24 @ 10:30 by Christianne Beasley RN) Arthritis Asthma, allergic Hyperlipidemia Colitis PAC (premature atrial contraction) Impingement of right shoulder Surgical History (Updated 08/28/24 @ 10:30 by Christianne Beasley RN) H/O colonoscopy Social History (Updated 09/20/24 @ 13:12 by ZUHAIR Cuellar) Are you a primary healthcare administrator to a significant other at home: No Do you presently have visiting nurse or other home services: No Patient Tobacco Use Status: Current someday Tobacco user Tobacco use type: Cigar Current occupational status: employed 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, 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 Physical Exam Vital Signs: BMI result Body Mass Index 24.4 Const Other: Well-nourished well-developed very friendly male awake alert and oriented x3 in no acute distress Extrem Other: Bilateral upper extremity examination shows good capillary refill, no skin lesions noted, normal sensation light touch Right shoulder examination shows that the surgical incisions are well healed, no erythema, slightly decreased range of motion when compared to his left shoulder, 4+ out of 5 strength with supraspinatus testing, no instability Assessment & Plan Assessment & Plan (1) Right shoulder pain: Code(s): M25.511 - Pain in right shoulder Category: Medical Plan Mr. Nava continues to do well after undergoing right shoulder arthroscopic surgery on 10/04/2024. He does remain somewhat stiff. I did give him a prescription to go to formal physical therapy. The do's and don'ts of lifting were discussed at length with the patient. He will contact me prior to his follow-up appointment in 3 months should any questions or concerns arise. Feel free to call me at any time should questions regarding his orthopedic management arise. I spent 20 minutes in reviewing the patient's records and imaging studies, seeing the patient and documenting in the medical record. Orders: Orders PT Evaluation and Treatment Today M25.511 - Pain in right shoulder Coding Level of Care Code Est Pt Level 3 (03827) Complex EM visit Add On G2211 Diagnoses Right shoulder pain M25.511
[2025-01-07 08:08] VITALS: BMI 24.4
== END 2025-01-07 08:24 | disposition home or self-care (01) ==
LOC: HO.HOS 07:59
PROVIDERS: PCP Internal Medicine; Visit Provider Orthopaedic Surgery
DX: M25.511 Pain in right shoulder (principal)
CPT/HCPCS: 99213